=== PATIENT | female | born 1990 | race African-American/Black ===

== ENCOUNTER 2018-10-28 00:30 | Inpatient (IN) | payer BC ==
[~2018-10-28 00:30] MED LIST: DEXTROSE 5%-LACTATED RINGERS 1,000 ML IV SCH
[2018-10-28] MEDS ORDERED: PROMETHAZINE HCL 25 MG/1 ML VIAL IVPB ONE (01:30)
[2018-10-28] MEDS ORDERED: BUTORPHANOL TARTRATE 1 MG/ML VIAL IVPB ONE (01:30)
[2018-10-28 01:37] VITALS: BMI 29.9
[2018-10-28 01:39] LABS: BASO % 0.2 % (0-2.0); EOS % 1.8 % (0-4.5); HEMATOCRIT 27.7 % (32.4-45.2); HEMOGLOBIN 9.3 GM/dL (10.7-15.3); MCH 24.7 pg (25.7-33.7); MCHC 33.4 g/dl (32.0-36.0); MEAN CELL VOLUME 73.7 fl (80-96); MEAN PLT VOLUME 8.5 fl (7.5-11.1); MONO % 6.9 % (3.8-10.2); NEUT % 78.1 % (42.8-82.8); PLATELET COUNT 222 K/MM3 (134-434); RBC 3.76 M/mm3 (3.60-5.2); RDW 17.1 % (11.6-15.6); WHITE BLOOD COUNT 12.4 K/mm3 (4.0-10.0)
[2018-10-28] MEDS ORDERED: OXYTOCIN 20 UNITS in 0.9% NS 20 UNIT/1,000 ML INFUS.BAG IV ONE ×2 (01:39→09:57)
[2018-10-28] MEDS ORDERED: PROMETHAZINE HCL 25 MG/1 ML VIAL ONE (01:39)
[2018-10-28] MEDS ORDERED: BUTORPHANOL TARTRATE 1 MG/ML VIAL ONE ×2 (01:39)
[2018-10-28] MEDS ORDERED: LIDOCAINE HCL 1% PRESERVATIVE FREE - 30ML VIAL ONE (01:40)
[2018-10-28 01:53] LABS: INR 0.99 (0.83-1.09); PROTHROMBIN TIME (PATIENT) 11.7 SEC (9.7-13.0)
[2018-10-28 01:55] LABS: ACTIVATED PTT 24.5 SECONDS (25.2-36.5)
[2018-10-28 02:30] LABS: COCAINE, UR NEGATIVE ng/ml (CUTOFF=300); METHADONE, UR NEGATIVE ng/ml (CUTOFF=300); OPIATES, URI NEGATIVE ng/ml (CUTOFF=300); PHENCYCLIDINE,URINE NEGATIVE ng/ml (CUTOFF=25); URINE AMPHETAMINES NEGATIVE ng/ml (CUTOFF=500); URINE BARBITURATES NEGATIVE ng/ml (CUTOFF=200); URINE BENZODIAZEPINES NEGATIVE ng/ml (CUTOFF=200)
[2018-10-28 02:36] LABS: ANION GAP 9 MMOL/L (8-16); BLOOD UREA NITROGEN 4 mg/dL (7-18); CALCIUM 8.2 mg/dL (8.5-10.1); CHLORIDE 105 mmol/L (98-107); CO2 23 mmol/L (21-32); CREATININE 0.8 mg/dL (0.55-1.3); GLUCOSE,RANDOM 87 mg/dL (74-106); POTASSIUM 3.6 mmol/L (3.5-5.1); SODIUM 137 mmol/L (136-145)
[2018-10-28] MEDS ORDERED: FENTANYL/BUPIVACAINE/NS/PF - PCEA - 50 ML DISP.SYRIN EP ONE (04:05)
[2018-10-28] MEDS ORDERED: BUPIVACAINE HCL/PF 0.25% (2.5MG/ML) 10 ML VIAL ONE (04:14)
[2018-10-28] MEDS: ELECTROLYTE-148 SOLN 1,000 ML IV SCH ×2 (04:20→06:30)
--- NOTE | 2018-10-28 04:34 | HP ---
Past Medical History - Primary Care Physician PCP:: Jm Garcia - Admission Chief Complaint: 27yo P1 with at EGA 39w5 admitted with spontaneous labor. History of Present Illness: Unknown LMP. EDC(US) 10/30/2018 Late PNC transfer to our office at EGA 37wk. Prior rec's reviewed. Pt is Hg carrier- she states her partner had a normal screen (no record) GCT result not available- pt states it was negative Prior LGA delivery with vacuum assist. Pt's record from [facility] states the baby's wt was 9lb4oz. 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: No: Alzheimer's, CVA, Dementia, Migraine, Multiple Sclerosis, Peripheral Neuropathy, Parkinson's, Seizure, Syncope, TIA, Vertigo, Other Cardiovascular: No: AFIB, Aneurysm, Aortic Insufficiency, Aortic Stenosis, CAD, CHF, Deep Vein Thrombosis, HTN, Hyperlipdemia, NC, Mitral Insufficiency, Mitral Stenosis, Murmur, Pulmonary Hypertension, Other Pulmonary: No: Asthma, Bronchitis, Cancer, COPD, O2 Dependent, Pneumonia, Previously Intubated, Pulmonary Embolus, Pulmonary Fibrosis, Sleep Apnea, Other Gastrointestinal: No: Ascites, Cancer, Constipation, Crohn's Disease, Diverticulitis, Diverticulosis, Esophageal Varices, Gastritis, GERD, GI Bleed, Hemorrhoids, Hiatal Hernia, Inflamatory Bowel Disease, Irritable Bowel Disease, Pancreatitis, Peptic Ulcer Disease, Ulcerative Colitis, Other Hepatobiliary: No: Cirrhosis, Cholelithiasis, Cholecystitis, Choledocholithiasis , Hepatitis A, Hepatitis B, Hepatitis C, Other Renal/: No: Renal Failure, Renal Inusuff, BPH, Cancer, Hematuria, Hemodialysis , Neurogenic Bladder, Renal Calculi, UTI, Other Reproductive: No: Ectopic , Endometriosis, Fibroids, PID, Polycystic Ovary Syndrome, Postmenopausal, Other ...: 3 ...Para: 1 ...Term: 1 (VAVD) ...: 0 ...Spon : 1 ...Induced : 0 ...Multiple Gestation: 0 ... Weeks Gestation by Dates: 39.5 ...EDC by Sono: 10/30/18 Heme/Onc: Yes: Anemia, Sickle Cell Trait Infectious Disease: No: AIDS, C-Diff, Herpes Zoster, HIV, MRSA, STD's, Tuberculosis, VREF, Other Psych: No: Addictions, Anxiety, Bipolar, Depression, Panic, Psychosis, Schizophrenia, Other Musculoskeletal: No: Bursitis, Chronic low back pain, Hemiparesis, Hemiplegia, Osteoarthritis, Paraplegia, Other Rheumatology: No: Fibromyalgia, Gout, Lupus, Rheumatoid Arthritis, Sarcoidosis, Vasculitis, Other ENT: No: Allergic Rhinitis, Sinusitis, Other Endocrine: No: Kuldip's Disease, Anastasia's Disease, Diabetes Insipidus, Diabetes Mellitus, Hyperparathyroidism, Hyperthyroidism, Hypothyroidism, Osteopenia, SIADH, Other - Past Surgical History Past Surgical History: Yes: None Hx Myomectomy: No Hx Transabdominal Cerclage: No - Smoking History Smoking history: Never smoked Have you smoked in the past 12 months: No - Alcohol/Substance Use Hx Alcohol Use: No History of Substance Use: reports: None - Social History Usual Living Arrangement: Yes: With Significant Other, With Child ADL: Independent History of Recent Travel: No Home Medications - Allergies Allergies/Adverse Reactions: Allergies Allergy/AdvReac Type Severity Reaction Status Date / Time No Known Allergies Allergy Verified 10/28/18 00:57 - Home Medications Home Medications: Ambulatory Orders No.137/Iron/Folic Acd [ Vitamin Tablet] 1 each PO DAILY Family Disease History - Family Disease History Family History: Unremarkable Review of Systems - Review of Systems Constitutional: reports: Other (pain of labor) Eyes: reports: No Symptoms HENT: reports: No Symptoms Neck: reports: No Symptoms Cardiovascular: reports: No Symptoms Respiratory: reports: No Symptoms Gastrointestinal: reports: No Symptoms Genitourinary: reports: No Symptoms Breasts: reports: No Symptoms Reported Musculoskeletal: reports: No Symptoms Integumentary: reports: No Symptoms Neurological: reports: No Symptoms Endocrine: reports: No Symptoms Hematology/Lymphatic: reports: No Symptoms Psychiatric: reports: No Symptoms Pain Intensity: 10 Physical Exam - Maternity Vital Signs: Vital Signs Temperature 98.1 F 10/28/18 02:00 Pulse Rate 85 10/28/18 02:00 Respiratory Rate 18 10/28/18 02:00 Blood Pressure 116/62 10/28/18 02:00 O2 Sat by Pulse Oximetry (%) Constitutional: Yes: Well Nourished, Calm, Severe Distress (WITH CONTRACTIONS) Eyes: Yes: WNL, Conjunctiva Clear, EOM Intact HENT: Yes: WNL, Atraumatic, Normocephalic Neck: Yes: WNL, Supple, Trachea Midline Cardiovascular: Yes: WNL, Regular Rate and Rhythm Lungs: Clear to auscultation, Normal air movement - Abdominal Exam/OB Fundal Height: 40 Number of Fetuses: Single Presentation: Vertex Contractions: Yes Regularity: Regular Intensity: Strong Monitor Mode: External Heart Rate (range): 110 Heart Rate Location: Midline Category: I Accelerations: Non-Uniform Decelerations: None - Vaginal Exam/OB Vaginal Bleediing: No Speculum Exam: No Dilatation (cm): 7 Effacement (%): 90 Amniotic Membrane Status: Leaking Amniotic Fluid: Yes: Clear Presentation: Vertex/Position Station: 0 (ADEQUATE GYNECOID PELVIMETRY, EFW [id number] BY [employer] ) - Physical Exam Musculoskeletal: Yes: WNL Extremities: Yes: WNL Edema: No Edema: LLE: Trace, RLE: Trace Integumentary: Yes: WNL Deep Tendon Reflex Grade: Normal +2 ...Motor Strength: WNL Psychiatric: Yes: WNL, Alert, Oriented - Labs Lab Results: CBC, BMP 10/28/18 01:00 10/28/18 01:00 Hemorrhage Risk Assessment - Risk Factors Medium Risk Factors: Yes: None High Risk Factors: Yes: None Risk Score: 1 Risk Level: Medium Risk Imaging - Results Ultrasound: Report Reviewed (FROM [facility]) Assessment/Plan 27yo P1 with at EGA 39w5 admitted with spontaneous labor. Pt in active labor and was initially given IV sedation, while awaiting initial labs. Now she requested epidural. Anesthesia was contacted. Labor and cervical dilation progressed since admission. Plan to monitor progress. Fetus with Category I tracing LGA baby suspected. I discussed the risks of shoulder dystocia with pt. There is no GCT record, however the pt reports it normal. She refused elective section. Severe anemia noted. Pt states she was told to stop iron "because the levels were good" and was not using PNV. I explained the risk of hemorrhage and blood transfusion. Vaginal GBS is negative.
[2018-10-28] MEDS ORDERED: NALOXONE HCL 0.4 MG/ML VIAL IVPUSH PRN (04:38)
[2018-10-28] MEDS ORDERED: FENTANYL/BUPIVACAINE/NS/PF - PCEA - 50 ML DISP.SYRIN EP SCH (04:45)
--- NOTE | 2018-10-28 07:41 | PN ---
Ante-Partal Exam - Subjective Subjective: No complaints Vital Signs: Vital Signs Temperature 98.1 F 10/28/18 07:00 Pulse Rate 93 H 10/28/18 07:17 Respiratory Rate 20 10/28/18 07:15 Blood Pressure 124/70 10/28/18 07:15 O2 Sat by Pulse Oximetry (%) 100 10/28/18 07:17 Bleeding: No Headache: No Visual changes: No Right upper quadrant pain: No Pain (scale 1-10): 0 - Contractions Contractions: Yes Regularity: Regular Intensity: Unaware Monitor Mode: External - Exam during Labor Heart Rate: 120 Variability: Moderate Heart Rate Location: Midline Category: I Monitor Accelerations: Present Monitor Decelerations: None Exam: Vaginal Dilatation (cm): 10 Effacement (%): 100 Amniotic Membrane Status: Leaking Nitrazine Test: Positive Amniotic Fluid: Clear Station: +2 - Intrapartum Hemorrhage Risk Medium Risk Factors: None High Risk Factors: None Risk Score: 0 Risk Level: Low Risk - Assessment/Plan Assessment/Plan: 27yo P0 with at 39w5d admitted with spont labor. Pt progressed to second stage but cannot push because she is not feeling any pressure or urge to push due to epidural. Plan to wait for epidural to wear of and start pushing. tracing is Category I. Shoulder dystocia precautions were d/w pt and staff.
[2018-10-28] MEDS ORDERED: IBUPROFEN 600 MG TABLET (FP) PO ONE ×2 (09:48→11:45)
[2018-10-28] MEDS ORDERED: ACETAMINOPHEN 325 MG TABLET (FP) ONE (09:48)
[2018-10-28] MEDS: ACETAMINOPHEN 325 MG TABLET (FP) PO PRN ×2 (10:00→20:14)
[2018-10-28] MEDS: IBUPROFEN 600 MG TABLET (FP) PO PRN ×2 (10:00→20:13)
[2018-10-28] MEDS ORDERED: WITCH HAZEL 50% (TUCKS) 40 PAD/JAR PAD TP PRN (10:46)
[2018-10-28] MEDS ORDERED: BISACODYL 10 MG SUPP.RECT RC PRN (10:46)
[2018-10-28] MEDS ORDERED: BENZOCAINE 28 GM HEMORRHOIDAL OINTMENT TP PRN (10:46)
[2018-10-28] MEDS ORDERED: METHYLERGONOVINE MALEATE 0.2 MG/1 ML AMP IM PRN (10:46)
[2018-10-28] MEDS ORDERED: BENZOCAINE 20% 57 GM BOTTLE TP PRN (10:46)
[2018-10-28] MEDS ORDERED: OXYTOCIN 20 UNITS in 0.9% NS 20 UNIT/1,000 ML INFUS.BAG IV SCH ×2 (11:00)
[2018-10-28] MEDS ORDERED: ACETAMINOPHEN 325 MG TABLET (FP) PO ONE (11:45)
[2018-10-28] MEDS: FERROUS SO4 325 MG TABLET (FP) PO SCH ×2 (14:01→17:43)
--- NOTE | 2018-10-28 14:06 | PN ---
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
--- NOTE | 2018-10-29 06:24 | PN ---
Post Progress Note - Subjective Subjective: Patient without acute complaints. Reports tolerating oral intake without nausea or vomiting. Ambulating without dizziness. Denies fevers or chills. Pain well controlled with oral pain medication. without difficulty. Passing flatus. Post Day: 1 Type of Delivery: Vital Signs: Vital Signs Temperature 98.9 F 10/28/18 22:00 Pulse Rate 78 10/28/18 22:00 Respiratory Rate 18 10/28/18 22:00 Blood Pressure 109/63 10/28/18 22:00 O2 Sat by Pulse Oximetry (%) 100 10/28/18 07:45 Breast Exam: Yes: Soft Uterus: Yes: Fundus Firm, Fundus below umbilicus Abdomen/GI: Yes: Abdomen soft, Passing flatus, Tolerating PO. No: Abdominal Distention, Tender Lochia: Yes: Serosa Lochia, amount: Small Extremities: Yes: Calves non-tender. No: Edema Perineum: Yes: Laceration Activity: Ambulating - Labs Labs: CBC WBC 12.4 K/mm3 (4.0-10.0) H 10/28/18 01:00 RBC 3.76 M/mm3 (3.60-5.2) 10/28/18 01:00 Hgb 9.3 GM/dL (10.7-15.3) L 10/28/18 01:00 Hct 27.7 % (32.4-45.2) L D 10/28/18 01:00 MCV 73.7 fl (80-96) L 10/28/18 01:00 MCH 24.7 pg (25.7-33.7) L 10/28/18 01:00 MCHC 33.4 g/dl (32.0-36.0) 10/28/18 01:00 RDW 17.1 % (11.6-15.6) H 10/28/18 01:00 Plt Count 222 K/MM3 (134-434) 10/28/18 01:00 MPV 8.5 fl (7.5-11.1) 10/28/18 01:00 Absolute Neuts (auto) 9.6 K/mm3 (1.5-8.0) H 10/28/18 01:00 Neutrophils % 78.1 % (42.8-82.8) 10/28/18 01:00 Lymphocytes % 13.0 % (8-40) 10/28/18 01:00 Monocytes % 6.9 % (3.8-10.2) 10/28/18 01:00 Eosinophils % 1.8 % (0-4.5) 10/28/18 01:00 Basophils % 0.2 % (0-2.0) 10/28/18 01:00 Nucleated RBC % 0 % (0-0) 10/28/18 01:00 Assessment/Plan 27 yo PPD # 1 s/p , afebrile, vital signs stable, doing well 1. Continue routine care. 2. Follow up AM CBC 3. Rh positive status, no rhogam indicated. 4. Encourage ambulation 5. Continue oral pain medication 6. Anticipate discharge home day #2
[2018-10-29] MEDS: FERROUS SO4 325 MG TABLET (FP) PO SCH ×3 (08:15→17:08)
[2018-10-29 08:18] LABS: BASO % 0.7 % (0-2.0); EOS % 0.9 % (0-4.5); HEMATOCRIT 29.4 % (32.4-45.2); HEMOGLOBIN 9.1 GM/dL (10.7-15.3); LYMPH % 15.8 % (8-40); MCHC 30.9 g/dl (32.0-36.0); MEAN CELL VOLUME 74.7 fl (80-96); MEAN PLT VOLUME 8.2 fl (7.5-11.1); MONO % 5.6 % (3.8-10.2); PLATELET COUNT 201 K/MM3 (134-434); RBC 3.93 M/mm3 (3.60-5.2); RDW 17.3 % (11.6-15.6); WHITE BLOOD COUNT 17.7 K/mm3 (4.0-10.0)
[2018-10-29] MEDS: PRENATAL VITAMINS W/ FOLIC ACID TABLET (FP) PO SCH (09:23)
[2018-10-29] MEDS: ACETAMINOPHEN 325 MG TABLET (FP) PO PRN (21:07)
[2018-10-29] MEDS: IBUPROFEN 600 MG TABLET (FP) PO PRN (21:07)
[2018-10-29 21:36] VITALS: PULSE 80
[2018-10-29] MEDS ORDERED: SENNOSIDES/DOCUSATE COMBO (SENNA PLUS) TABLET (UD) PO PRN (22:00)
--- NOTE | 2018-10-30 08:18 | DS ---
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 Vital Signs: Vital Signs Temperature 98.4 F 10/29/18 21:35 Pulse Rate 80 10/29/18 21:35 Respiratory Rate 20 10/29/18 21:35 Blood Pressure 105/64 10/29/18 21:35 O2 Sat by Pulse Oximetry (%) 100 10/28/18 07:45 Constitutional: Yes: Well Nourished, No Distress, Calm Eyes: Yes: WNL, Conjunctiva Clear, EOM Intact HENT: Yes: WNL, Atraumatic, Normocephalic Neck: Yes: WNL, Supple, Trachea Midline Cardiovascular: Yes: WNL, Regular Rate and Rhythm Respiratory: Yes: WNL, Regular, CTA Bilaterally Gastrointestinal: Yes: WNL ...Rectal Exam: Yes: WNL Renal/: Yes: WNL External Genitalia: Yes: Normal ....Post : Yes: Uterus firm, Uterus non-tender, Slight lochia rubra Breast(s): Yes: WNL Musculoskeletal: Yes: WNL Extremities: Yes: WNL Edema: No Integumentary: Yes: WNL Neurological: Yes: WNL, Alert, Oriented ...Motor Strength: WNL Psychiatric: Yes: WNL, Alert, Oriented Labs: CBC, BMP 10/29/18 07:45 10/28/18 01:00 Delivery - Delivery Vaginal Delivery: No Problems, Spontaneous Type of Anesthesia: Local, Epidural Episiotomy/Laceration: Perineal Extension/lac, 1st degree EBL (cc): 300 Delivery, Single - Stages of Labor Date 1st Stage Initiatied: 10/27/18 Time 1st Stage Initiated: 06:00 Date 2nd Stage Initiated: 10/28/18 Time 2nd Stage Initiated: 07:40 Date of Delivery: 10/28/18 Time of Delivery: 09:10 Time Placenta Delivered: 09:15 Placenta: Yes: Spontaneous, Normal Configuration - Condition of Infant Utility System Operator/Feed Mixer Present: Yes Name: Gabrielle Webb Infant Gender: Female Weight: 8 lb Position: Left, OA Total Hours ROM (Hrs/Mins): 5H 50MIN - 1 Minute Total Score: 9 5 Minutes Total Score: 9 - Feeding Plan Initial Plan: Elected not to breastfeed exclusively throughout hospitalization Discharge Summary Reason For Visit: LABOR ADMIT Procedures: Principal: Hospital Course: no complication Condition: Good - Instructions Diet, Activity, Other Instructions: regular diet,no intercourse, if fever, pain, heavy vaginal bleeding call MD , follow up office 4 weeks Disposition: HOME - Home Medications Comprehensive Discharge Medication List: Ambulatory Orders Ibuprofen [Motrin -] 600 mg PO QID #28 tablet 10/28/18 No.137/Iron/Folic Acd [ Vitamin Tablet] 1 each PO DAILY
[2018-10-30] MEDS: FERROUS SO4 325 MG TABLET (FP) PO SCH ×2 (08:19→11:43)
[2018-10-30] MEDS: PRENATAL VITAMINS W/ FOLIC ACID TABLET (FP) PO SCH (09:45)
[2018-10-30] MEDS ORDERED: DIPHTH,PERTUSS(ACELL),TET 0.5 ML DISP.SYRIN IM ONE (10:00)
[2018-10-30 10:17] VITALS: BP 105/62; TEMP 98.2
[2018-10-30] MEDS: IBUPROFEN 600 MG TABLET (FP) PO PRN (13:48)
== END 2018-10-30 13:45 | disposition home or self-care (01) | DRG 807 ==
LOC: JLDR 00:30 → J3W 11:20
PROVIDERS: ADMIT Obstetrics & Gynecology; ATTEND Obstetrics & Gynecology
PROC: 10E0XZZ Delivery of Products of Conception, External Approach (ICD-10-PCS; principal; 2018-10-28)
PROC: 0HQ9XZZ Repair Perineum Skin, External Approach (ICD-10-PCS; 2018-10-28)
DX: O36.63X0 Maternal care for excessive fetal growth, third trimester, not applicable or unspecified (principal); Z37.0 Single live birth; O70.0 First degree perineal laceration during delivery; O99.013 Anemia complicating pregnancy, third trimester; D64.9 Anemia, unspecified; Z3A.39 39 weeks gestation of pregnancy
CPT/HCPCS: 36415; 59409; 80048; 80307; 85025; 85610; 85730; 86593; 86850; 86900; 86901; 87389; 90715